=== PATIENT | female | born 1955 | race Caucasian/White ===

== ENCOUNTER 2016-09-06 11:46 | Inpatient (IN) | payer BC ==
[2016-09-06] VITALS (8 sets, daily range): BP systolic 101–114; BP diastolic 51–65; PULSE 67–94; TEMP 97.9–98.4
[~2016-09-06] VITALS: Ht 162.6 cm; Wt 73.7 kg
[2016-09-06 12:39] LABS: BASO # 0.1 (0.0-0.2); BASO % 0.5 % (0.0-2.0); EOS # 0.1 (0.0-0.7); GRAN # 6.1 (1.4-6.5); GRAN % 63.3 % (42.2-75.2); HEMATOCRIT 43.7 % (37.0-47.0); HEMOGLOBIN 14.7 g/dl (12.5-16.0); LYMPH # 2.6 (1.2-3.4); LYMPH % 26.7 % (20.0-51.0); MEAN CELL VOLUME 90 fl (80.0-100.0); MEAN CORPUSCULAR HEMOGLOBIN 30 pg (27.0-31.0); MEAN CORPUSCULAR HGB CONC 34 g/dl (33.0-37.0); MEAN PLATELET VOLUME 9.8 fl (7.4-10.4); MONO # 0.8 (0.1-0.6); MONO % 8.3 % (1.7-9.3); PLATELET COUNT 284 K/mm3 (130-400); RED BLOOD COUNT 4.84 M/mm3 (4.10-5.30); REDCELL DISTRIBUTION WIDTH-CV 13.2 % (11.5-14.5); WHITE BLOOD COUNT 9.6 K/mm3 (4.8-10.8)
[2016-09-06] MEDS ORDERED: NORCO 325 MG-51 TAB PO (20:46)
[2016-09-06] MEDS ORDERED: COLACE 100100 MG/CAP PO (20:48)
[2016-09-06] MEDS ORDERED: CEPHALEXIN500 M1 PO (22:25)
[2016-09-07 00:10] VITALS: BP 98/58; PULSE 66
[2016-09-07 01:10] VITALS: BP 102/61; PULSE 70
[2016-09-07 02:10] VITALS: BP 106/89; PULSE 85
[2016-09-07 06:00] VITALS: BP 93/43; PULSE 65; TEMP 97.9
== END 2016-09-07 09:48 | disposition home or self-care (01) | DRG 514 ==
LOC: COL.ER 11:46 → SDCO 13:45 → SURG 13:45 → SDCO 20:39 → SURG 20:40 → SDCO 09-07 09:48 → SURG 09-07 09:48
PROVIDERS: Emergency Medicine; Orthopaedic Surgery Sports Medicine
PROC: 0HQGXZZ Repair Left Hand Skin, External Approach (ICD-10-PCS; 2016-09-06)
PROC: 0X6R0Z3 Detachment at Left Middle Finger, Low, Open Approach (ICD-10-PCS; principal; 2016-09-06 21:00)
PROC: 0LQ80ZZ Repair Left Hand Tendon, Open Approach (ICD-10-PCS; 2016-09-06 21:00)
DX: S62.633B Displaced fracture of distal phalanx of left middle finger, initial encounter for open fracture (principal); S61.213A Laceration without foreign body of left middle finger without damage to nail, initial encounter; S61.215A Laceration without foreign body of left ring finger without damage to nail, initial encounter; S61.217A Laceration without foreign body of left little finger without damage to nail, initial encounter; F17.210 Nicotine dependence, cigarettes, uncomplicated; S67.197A Crushing injury of left little finger, initial encounter; S67.193A Crushing injury of left middle finger, initial encounter; S67.195A Crushing injury of left ring finger, initial encounter; W31.89XA Contact with other specified machinery, initial encounter
CPT/HCPCS: OP; J0690; J1100; J1170; J2250; J2405; J2704; J2795; J3010; J7120